=== PATIENT | female | born 1975 | race Caucasian/White ===

== ENCOUNTER 2016-09-06 14:00 | Observation (INO) | payer SELFPAY ==
[~2016-09-06] VITALS: Ht 167.6 cm; Wt 84.2 kg
[2016-09-06] VITALS (12 sets, daily range): BP systolic 152–169; BP diastolic 86–100; PULSE 63–93; RESP 16–22; TEMP 97.6–98.2; O2SAT 96–100
[2016-09-06] MEDS ORDERED: NITROGLYCERIN 0.4 MG SL 25 TABS/BTL SL ONE (15:00)
[2016-09-06] MEDS ORDERED: ASPIRIN 81 MG CHEW TAB PO ONE (15:00)
[2016-09-06] MEDS ORDERED: SODIUM CHLORIDE 0.9% FLUSH 10 ML FLUSH IVF PRN (15:00)
[2016-09-06 15:10] LABS: AUTOMATED NEUTROPHIL # 8.4 TH/MM3 (1.8-7.7); BASOPHIL # 0.1 TH/MM3 (0-0.2); BASOPHIL % 0.5 % (0.0-2.0); EOSINOPHIL # 0.1 TH/MM3 (0-0.4); EOSINOPHIL % 1.2 % (0.0-4.0); HEMATOCRIT 35.1 % (35.0-46.0); HEMO FLAGS DIFF FINAL; LYMPH % 22.6 % (9.0-44.0); LYMPHOCYTE # 2.7 TH/MM3 (1.0-4.8); MEAN CELL VOLUME 83.7 FL (80.0-100.0); MEAN CORPUSCULAR HEMOGLOBIN 29.7 PG (27.0-34.0); MEAN CORPUSCULAR HGB CONC 35.5 % (32.0-36.0); MONO % 4.1 % (0.0-8.0); NEUT % 71.6 % (16.0-70.0); PLATELET COUNT 301 TH/MM3 (150-450); RED BLOOD COUNT 4.19 MIL/MM3 (4.00-5.30); RED CELL DISTRIBUTION WIDTH 12.1 % (11.6-17.2); WHITE BLOOD COUNT 11.8 TH/MM3 (4.0-11.0)
[2016-09-06 15:22] LABS: CHLORIDE 108 MEQ/L (98-107); POTASSIUM 3.3 MEQ/L (3.5-5.1); SODIUM (NA) 143 MEQ/L (136-145)
[2016-09-06 15:26] LABS: ANION GAP 11 MEQ/L (5-15); BICARBONATE 24.2 MEQ/L (21.0-32.0); BLOOD UREA NITROGEN 16 MG/DL (7-18); MAGNESIUM 2.2 MG/DL (1.5-2.5)
[2016-09-06 15:29] LABS: ALT (GPT) 121 U/L (10-53); AST (GOT) 60 U/L (15-37); GLOMERULAR FILTRATION RATE 80 ML/MIN (>89)
[2016-09-06 15:30] LABS: TOTAL BILIRUBIN ADULT 0.2 MG/DL (0.2-1.0)
[2016-09-06 15:32] LABS: ALKALINE PHOSPHATASE 59 U/L (45-117); CREATINE KINASE 641 U/L (26-192)
[2016-09-06 15:38] LABS: APTT (PATIENT) 28.2 SEC (24.3-30.1); INTERNATIONAL NORMALIZED RATIO 0.9 RATIO; PROTHROMBIN TIME - PATIENT 9.8 SEC (9.8-11.6)
--- NOTE | 2016-09-06 15:42 | PD ---
HPI Chief Complaint: Respiratory Symptoms Time Seen by Provider: 14:41 Travel History International Travel<30 days: No Contact w/Intl Traveler<30days: No Traveled to known affect area: No History of Present Illness HPI Patient is a 41-year-old female comes in complaining of chest pain. She says she has had the pain for the past 3 days, but it got worse today. She says the pain was intermittent until today. She says the pain radiates down her left arm and up her jaw. She has not had any nausea or vomiting. She denies cough or cold. She does feel some shortness of breath. She describes the pain as a pressure in her chest. She denies fever or chills. She had a hysterectomy a few years ago. She denies any drug use. She is a smoker. [facility]LY [facility] Past Medical History Tetanus Vaccination: < 5 Years Influenza Vaccination: No ?: Not Past Surgical History Hysterectomy: Yes Family History Family Myocardial Infarction: Yes (father and grandfather) Social History Alcohol Use: Yes (socially, beer, wine or mix drinks) Tobacco Use: Yes (1/2 ppd) Substance Use: Yes (states smoked "pot") Allergies-Medications (Allergen,Severity, Reaction): Coded Allergies: Sulfa (Verified Allergy, Severe, hives, 09/06/16) Uncoded Allergies: anesthesia (Adverse Reaction, Unknown, Nausea/Vomiting, 09/06/16) Review of Systems Except as stated in HPI: all other systems reviewed are Neg General / Constitutional: No: Fever, Chills HENT: No: Headaches, Vertigo, Lightheadedness Cardiovascular: Positive: Chest Pain or Discomfort Respiratory: Positive: Shortness of Breath, No: Cough Gastrointestinal: No: Nausea, Vomiting Musculoskeletal: No: Myalgias Skin: No Rash Neurologic: No: Weakness, Dizziness Physical Exam Narrative GENERAL: Awake and alert, in no acute distress. SKIN: Focused skin assessment warm/dry. HEAD: Atraumatic. Normocephalic. EYES: Pupils equal and round. No scleral icterus. ENT: Mucous membranes pink and moist. NECK: Trachea midline. No JVD. CARDIOVASCULAR: Regular rate and rhythm. No murmur appreciated. No chest wall tenderness. RESPIRATORY: No accessory muscle use. Clear to auscultation. Breath sounds equal bilaterally. GASTROINTESTINAL: Abdomen soft, non-tender, nondistended. MUSCULOSKELETAL: No obvious deformities. No clubbing. No cyanosis. No edema. NEUROLOGICAL: Awake and alert. No obvious cranial nerve deficits. Motor grossly within normal limits. Normal speech. PSYCHIATRIC: Appropriate mood and affect; insight and judgment normal. Data Data Last Documented VS Vital Signs Date Time Temp Pulse Resp B/P Pulse Ox O2 Delivery O2 Flow Rate FiO2 09/06/16 15:48 16 09/06/16 15:35 80 166/90 09/06/16 15:00 99 Room Air 09/06/16 14:48 98.1 Orders Ckmb (Isoenzyme) Profile (09/06/16 14:52) Complete Blood Count With Diff (09/06/16 14:52) Comprehensive Metabolic Panel (09/06/16 14:52) D-Dimer (09/06/16 14:52) Magnesium (Mg) (09/06/16 14:52) Prothrombin Time / Inr (Pt) (09/06/16 14:52) Act Partial Throm Time (Ptt) (09/06/16 14:52) Troponin I (09/06/16 14:52) Ecg Monitoring (09/06/16 14:52) Bilateral Bp Monitoring (09/06/16 14:52) Iv Access Insert/Monitor (09/06/16 14:52) Oximetry (09/06/16 14:52) Oxygen Administration (09/06/16 14:52) Aspirin Chew (Aspirin Chew) (09/06/16 15:00) Sodium Chloride 0.9% Flush (Ns Flush) (09/06/16 15:00) Nitroglycerin Sl (Nitrostat Sl) (09/06/16 15:00) Chest, Pa & Lat (09/06/16 14:52) Electrocardiogram (09/06/16 14:21) CKMB (09/06/16 15:05) CKMB% (09/06/16 15:05) Labs Laboratory Tests Test 09/06/16 15:05 White Blood Count 11.8 TH/MM3 Red Blood Count 4.19 MIL/MM3 Hemoglobin 12.4 GM/DL Hematocrit 35.1 % Mean Corpuscular Volume 83.7 FL Mean Corpuscular Hemoglobin 29.7 PG Mean Corpuscular Hemoglobin 35.5 % Concent Red Cell Distribution Width 12.1 % Platelet Count 301 TH/MM3 Mean Platelet Volume 7.1 FL Neutrophils (%) (Auto) 71.6 % Lymphocytes (%) (Auto) 22.6 % Monocytes (%) (Auto) 4.1 % Eosinophils (%) (Auto) 1.2 % Basophils (%) (Auto) 0.5 % Neutrophils # (Auto) 8.4 TH/MM3 Lymphocytes # (Auto) 2.7 TH/MM3 Monocytes # (Auto) 0.5 TH/MM3 Eosinophils # (Auto) 0.1 TH/MM3 Basophils # (Auto) 0.1 TH/MM3 CBC Comment DIFF FINAL Differential Comment Prothrombin Time 9.8 SEC Prothromb Time International 0.9 RATIO Ratio Activated Partial 28.2 SEC Thromboplast Time D-Dimer Quantitative (PE/DVT) 0.43 MG/L FEU Sodium Level 143 MEQ/L Potassium Level 3.3 MEQ/L Chloride Level 108 MEQ/L Carbon Dioxide Level 24.2 MEQ/L Anion Gap 11 MEQ/L Blood Urea Nitrogen 16 MG/DL Creatinine 0.79 MG/DL Estimat Glomerular Filtration 80 ML/MIN Rate Random Glucose 90 MG/DL Calcium Level 8.9 MG/DL Magnesium Level 2.2 MG/DL Total Bilirubin 0.2 MG/DL Aspartate Amino Transf 60 U/L (AST/SGOT) Alanine Aminotransferase 121 U/L (ALT/SGPT) Alkaline Phosphatase 59 U/L Total Creatine Kinase 641 U/L Creatine Kinase MB 3.4 NG/ML Creatine Kinase MB % 0.5 % Troponin I LESS THAN 0.02 NG/ML Total Protein 7.6 GM/DL Albumin 4.2 GM/DL MDM Medical Decision Making Medical Screen Exam Complete: Yes Emergency Medical Condition: Yes Interpretation(s) ECG shows normal sinus rhythm at 76, no ST elevation or depression, normal intervals. Differential Diagnosis Costochondritis versus pericarditis versus pneumothorax versus pneumonia versus ACS Narrative Course Patient is a 41-year-old female comes in complaining of chest pain. Exam shows no acute abnormalities. IV established, labs sent. Patient connected to monitoring analyst. First troponin is negative. Patient given aspirin and nitroglycerin. She feels better after nitroglycerin. Labs show no acute abnormalities. Patient has had a hysterectomy, thus does not have the protection of estrogen anymore. I believe it is in her best interest to be placed in chest pain center for further management. Diagnosis Primary Impression: Chest pain Qualified Code: R07.9 - Chest pain, unspecified type Admitting Information Admitting Physician Requests: Observation Shelia Martinez MD Sep 06, 2016 15:42
[2016-09-06 15:44] LABS: CKMB 3.4 NG/ML (0.5-3.6)
--- NOTE | 2016-09-06 16:29 | HHI.HP ---
HPI Primary Care Physician No Primary Care Physician Admission Diagnosis Chest Pain Diagnoses: Chief Complaint: Chest pain and short of breath History of Present Illness Patient is a 41-year-old female with 3 days of increasing left sided chest discomfort described as pressure. It is severe and increasing as the last 3 days have gone by. Is now associated with shortness of breath for 1 day. She has some associated nausea. The pain did radiate into her jaw and has been worse with movement. Patient notes no previous episodes, no recent trauma and no relieving factors other than nitroglycerin given in the emergency room. She does smoke half pack per day and admits to significant family history of premature cardiac disease. She does exercise daily and lives an active lifestyle. She has never had chest pain despite doing 30 minutes of cardio and other activities in her local gym. Patient did have negative cardiac enzymes however her CPK was somewhat elevated and she was at the gym yesterday. For these reasons the patient was recommended for and agrees to observation in the chest pain unit. Review of Systems Constitutional: DENIES: Diaphoretic episodes, Fatigue, Fever, Weight gain, Weight loss, Chills, Dizziness, Change in appetite, Night Sweats Eyes: DENIES: Blurred vision, Diplopia, Eye inflammation, Eye pain, Vision loss , Photosensitivity, Double Vision Ears, nose, mouth, throat: DENIES: Tinnitus, Hearing loss, Vertigo, Nasal discharge, Oral lesions, Throat pain, Hoarseness, Ear Pain, Running Nose, Epistaxis, Sinus Pain, Toothache, Odynophagia Respiratory: COMPLAINS OF: Shortness of breath, DENIES: Apneas, Cough, Snoring , Wheezing, Hemoptysis, Sputum production Cardiovascular: COMPLAINS OF: Chest pain Gastrointestinal: DENIES: Abdominal pain, Black stools, Bloody stools, Constipation, Diarrhea, Nausea, Vomiting, Difficulty Swallowing, Anorexia Genitourinary: DENIES: Abnormal vaginal bleeding, Dysmenorrhea, Dyspareunia, Sexual dysfunction, Urinary frequency, Urinary incontinence, Urgency, Hematuria , Dysuria, Nocturia, Vaginal discharge Musculoskeletal: DENIES: Joint pain, Muscle aches, Stiffness, Joint Swelling, Back pain, Neck pain Integumentary: DENIES: Abnormal pigmentation, Pruritus, Rash, Nail changes, Breast masses, Breast skin changes, Nipple discharge Hematologic/lymphatic: DENIES: Bruising, Lymphadenopathy Immunologic/allergic: DENIES: Eczema, Urticaria Neurologic: DENIES: Abnormal gait, Headache, Localized weakness, Paresthesias, Seizures, Speech Problems, Tremor, Poor Balance Psychiatric: DENIES: Anxiety, Confusion, Mood changes, Depression, Hallucinations, Agitation, Suicidal Ideation, Homicidal Ideation, Delusions Past Family Social History Past Medical History Denies Past Surgical History Denies Reported Medications Denies Allergies: Coded Allergies: Sulfa (Verified Allergy, Severe, hives, 09/06/16) Uncoded Allergies: anesthesia (Adverse Reaction, Unknown, Nausea/Vomiting, 09/06/16) Active Ordered Medications Reviewed in the medical record Family History Grandmother in her 50s from a massive heart attack and had congestive heart failure, grandfather at 58 from massive heart attack and had congestive heart failure, father had a cardiac bypass at age 55 and at age 60 from massive heart attack Social History 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 SKIN: No rashes, ecchymoses or lesions. Cool and dry. HEAD: Atraumatic. Normocephalic. No temporal or scalp tenderness. EYES: Pupils equal round and reactive. Extraocular motions intact. No scleral icterus. No injection or drainage. ENT: Nose without bleeding, purulent drainage or septal hematoma. Throat without erythema, tonsillar hypertrophy or exudate. Uvula midline. Airway patent. NECK: Trachea midline. No JVD or lymphadenopathy. Supple, nontender, no meningeal signs. CARDIOVASCULAR: Regular rate and rhythm without murmurs, gallops, or rubs. RESPIRATORY: Clear to auscultation. Breath sounds equal bilaterally. No wheezes , rales, or rhonchi. GASTROINTESTINAL: Abdomen soft, non-tender, nondistended. No hepato-splenomegaly , or palpable masses. No guarding. MUSCULOSKELETAL: Reproducible left axillary tenderness and reproducible discomfort with range of motion of the left upper extremity. Extremities without clubbing, cyanosis, or edema. No joint tenderness, effusion, or edema noted. No calf tenderness. Negative Homans sign bilaterally. NEUROLOGICAL: Awake and alert. Cranial nerves II through XII intact. Motor and sensory grossly within normal limits. Five out of 5 muscle strength in all muscle groups. Normal speech. Laboratory Laboratory Tests Test 09/06/16 15:05 White Blood Count 11.8 Red Blood Count 4.19 Hemoglobin 12.4 Hematocrit 35.1 Mean Corpuscular Volume 83.7 Mean Corpuscular Hemoglobin 29.7 Mean Corpuscular Hemoglobin 35.5 Concent Red Cell Distribution Width 12.1 Platelet Count 301 Mean Platelet Volume 7.1 Neutrophils (%) (Auto) 71.6 Lymphocytes (%) (Auto) 22.6 Monocytes (%) (Auto) 4.1 Eosinophils (%) (Auto) 1.2 Basophils (%) (Auto) 0.5 Neutrophils # (Auto) 8.4 Lymphocytes # (Auto) 2.7 Monocytes # (Auto) 0.5 Eosinophils # (Auto) 0.1 Basophils # (Auto) 0.1 CBC Comment DIFF FINAL Differential Comment Prothrombin Time 9.8 Prothromb Time International 0.9 Ratio Activated Partial 28.2 Thromboplast Time D-Dimer Quantitative (PE/DVT) 0.43 Sodium Level 143 Potassium Level 3.3 Chloride Level 108 Carbon Dioxide Level 24.2 Anion Gap 11 Blood Urea Nitrogen 16 Creatinine 0.79 Estimat Glomerular Filtration 80 Rate Random Glucose 90 Calcium Level 8.9 Magnesium Level 2.2 Total Bilirubin 0.2 Aspartate Amino Transf 60 (AST/SGOT) Alanine Aminotransferase 121 (ALT/SGPT) Alkaline Phosphatase 59 Total Creatine Kinase 641 Creatine Kinase MB 3.4 Creatine Kinase MB % 0.5 Troponin I LESS THAN 0.02 Total Protein 7.6 Albumin 4.2 Result Diagram: 09/06/16 1505 09/06/16 1505 Imaging On my review no acute cardiopulmonary findings Assessment and Plan Problem List: (1) Chest pain ICD Code: R07.9 Status: Acute Plan: atypical chest pain, likely musculoskeletal Follow CPK, treadmill in am + tobacco, Fhx of premature Heart disease, postmenopausal (2) Hypokalemia ICD Code: E87.6 Status: Acute Plan: replace and follow trend (3) Rhabdomyolysis ICD Code: M62.82 Status: Acute Plan: Trend cpk, tylenol prn IVF Problem Qualifiers (1) Chest pain: Qualified Code: R07.9 - Chest pain, unspecified type Celia Moreau MD Sep 06, 2016 16:29
[2016-09-06] MEDS ORDERED: ACETAMINOPHEN 500 MG CPLT PO PRN (16:30)
[2016-09-06] MEDS ORDERED: NITROGLYCERIN 0.4 MG SL 25 TABS/BTL SL PRN (16:30)
[2016-09-06] MEDS ORDERED: ONDANSETRON HCL 4 MG/2 ML VIAL IV PRN (16:30)
[2016-09-06] MEDS: SODIUM CHLOR 0.9% 1000 ML INJ 1,000 ML IV SCH (17:03)
--- NOTE | 2016-09-06 17:11 | RADHPO ---
EXAM DATE/TIME: 09/06/2016 15:50 [facility] COMPARISON: No previous studies available for comparison. INDICATIONS : Patient has had chest pain for three days. MEDICAL HISTORY : None. SURGICAL HISTORY : Hysterectomy. ENCOUNTER: Initial ACUITY: 3 days PAIN SCORE: 5/10 LOCATION: Left chest FINDINGS: PA and lateral views of the chest demonstrate the lungs to be symmetrically aerated without evidence of mass, infiltrate or effusion. The cardiomediastinal contours are unremarkable. Osseous structure s are intact. CONCLUSION: 1. No acute cardiopulmonary disease radiographically. Ibrahima Hurley MD on September 06, 2016 at 16:50 Board Certified Radiologist. This report was verified electronically.
[2016-09-06 17:18] LABS: CREATINE KINASE 702 U/L (26-192)
[2016-09-06 20:04] LABS: CREATINE KINASE 730 U/L (26-192)
[2016-09-06 20:17] LABS: CKMB 3.5 NG/ML (0.5-3.6)
[2016-09-07] VITALS (8 sets, daily range): BP systolic 120–159; BP diastolic 71–90; PULSE 62–80; RESP 16–18; TEMP 97.2–98.9; O2SAT 96–98
[2016-09-07] MEDS: SODIUM CHLOR 0.9% 1000 ML INJ 1,000 ML IV SCH ×3 (04:27→21:18)
[2016-09-07 06:37] LABS: CKMB 2.8 NG/ML (0.5-3.6)
[2016-09-07 07:36] LABS: POTASSIUM 4.1 MEQ/L (3.5-5.1)
[2016-09-07 07:39] LABS: BICARBONATE 24.3 MEQ/L (21.0-32.0)
--- NOTE | 2016-09-07 08:08 | HHI.PR ---
Subjective Remarks Follow-up for chest pain. Patient denies any further chest pain overnight. Denies any shortness of breath. She does admit to feeling weak and achy in her arms and legs this morning. Denies any hematuria. Admits to good urine output. Denies fevers or vomiting. Objective Vitals Vital Signs Date Time Temp Pulse Resp B/P Pulse Ox O2 Delivery O2 Flow Rate FiO2 09/07/16 04:00 98.1 67 18 134/88 96 09/07/16 00:00 98.1 67 18 120/76 96 09/06/16 21:30 97 21 09/06/16 21:00 78 09/06/16 19:11 97.6 68 18 169/99 97 09/06/16 18:19 63 09/06/16 17:46 97.8 71 20 155/94 96 09/06/16 17:34 80 16 152/94 100 09/06/16 16:28 76 16 161/89 100 Room Air 09/06/16 16:23 78 16 100 Room Air 09/06/16 15:48 16 09/06/16 15:35 80 16 166/90 09/06/16 15:00 82 16 163/97 99 Room Air 09/06/16 14:48 98.1 84 16 155/86 98 Room Air 09/06/16 14:30 16 99 Room Air 09/06/16 14:30 99 Room Air 09/06/16 14:29 97 16 96 Room Air 09/06/16 14:04 98.2 93 22 155/100 96 I/O 09/06/16 09/06/16 09/06/16 09/07/16 09/07/16 09/07/16 07:00 15:00 23:00 07:00 15:00 23:00 Intake Total 1000 ml Balance 1000 ml Intake IV Total 1000 ml # Voids 2 2 Result Diagram: 09/06/16 1505 09/07/16 0545 Objective Remarks GENERAL: Pleasant well-nourished, well-developed patient in no apparent distress. SKIN: Warm and dry. HEAD: Atraumatic. Normocephalic. CHEST: Reproducible tenderness over the left anterior chest wall. CARDIOVASCULAR: Regular rate and rhythm. No murmurs. RESPIRATORY: No accessory muscle use. Clear to auscultation. Breath sounds equal bilaterally. GASTROINTESTINAL: Abdomen soft, non-tender, nondistended. MUSCULOSKELETAL: No tenderness to palpation over the upper arms or calves bilaterally. No lower extremity edema bilaterally. NEUROLOGICAL: Awake and alert. Five out of 5 customer relations representative strength bilaterally and 5/5 strength in bilateral quadriceps. Normal speech. PSYCHIATRIC: Appropriate mood and affect; insight and judgment normal. Urinary Catheter: No Vascular Central Line Catheter: No A/P Problem List: (1) Chest pain ICD Code: R07.9 Status: Acute (2) Rhabdomyolysis ICD Code: M62.82 Status: Acute (3) Hypokalemia ICD Code: E87.6 Status: Resolved Assessment and Plan Chest pain: Atypical chest pain, appears musculoskeletal, but patient has + tobacco use and family history of premature heart disease. -EKGs 3 personally interpreted with sinus rhythm and no evidence of ischemia. -Troponin 3 less than 0.02. -Chest x-ray personally reviewed with no acute disease evident. -325 mg daily aspirin -Nitro prn chest pain -It is unsafe to perform treadmill this morning as patient's rhabdomyolysis is worsening and she is symptomatic now feeling achy and weak. She declines nuclear stress test as she does not desire medication. Rhabdomyolysis: Mild, but worse even after starting IV fluids. CPK trending upward 641-->750. Attributed to over exertion. 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 She does admit to hydrating. -BMP reviewed this morning with normal renal function. -Continue IV normal saline, but increase rate from 84 to 100 mL/hour Hypokalemia: Resolved. 3.3-->4.1. Mg normal. -Monitor DVT prophylaxis: Avoid SCDs due to leg aches. Consider starting Lovenox if patient does not ambulate sufficiently. Addendum Remarks The exam, history, and the medical decision-making described in the above note were completed with my assistance as the dictating practitioner. I attest that I had a [id number] encounter with the patient on the same day, and personally performed all of the history, exam, or medical decision making. I reviewed and agree with the plan. Patient seen and evaluated in follow-up for likely musculoskeletal chest pain and rhabdo my lysis Continue with IV hydration, patient will need outpatient follow-up We'll follow-up CPK Questions answered Likely discharge in a.m. Problem Qualifiers (1) Chest pain: Qualified Code: R07.9 - Chest pain, unspecified type Mansi Kapadia Sep 07, 2016 08:08 Celia Moreau MD Sep 07, 2016 12:15
[2016-09-07] MEDS: ASPIRIN 325 MG TAB PO SCH (09:00)
[2016-09-07] MEDS ORDERED: SODIUM CHLOR 0.9% 1000 ML INJ 1,000 ML IV ONE ×2 (12:00)
--- NOTE | 2016-09-07 22:40 | EKG ---
Date Performed: 09/06/2016 Time Performed: 19:20:30 PTAGE: 41 years EKG: Sinus rhythm WITH SINUS ARRHYTHMIA NORMAL ECG PREVIOUS TRACING : 09/06/2016 16.56 DOCTOR: Major Sultana Interpretating Date/Time 09/07/2016 22:38:35
--- NOTE | 2016-09-07 22:44 | EKG ---
Date Performed: 09/06/2016 Time Performed: 16:56:15 PTAGE: 41 years EKG: Sinus rhythm NORMAL ECG PREVIOUS TRACING : 09/06/2016 16.50 DOCTOR: Major Sultana Interpretating Date/Time 09/10/2016 07:08:49
--- NOTE | 2016-09-07 22:50 | EKG ---
Date Performed: 09/06/2016 Time Performed: 14:21:26 PTAGE: 41 years EKG: Sinus rhythm NORMAL ECG INTERPRETATION BASED ON A DEFAULT AGE OF 40 YEARS NO PREVIOUS TRACING DOCTOR: Major Sultana Interpretating Date/Time 09/07/2016 22:47:19
[2016-09-08 03:10] VITALS: BP 120/81; PULSE 59; RESP 18; TEMP 98; O2SAT 97
[2016-09-08 08:00] VITALS: BP 145/93; PULSE 65; RESP 20; TEMP 97.3; O2SAT 98
[2016-09-08 08:15] LABS: CKMB 1.4 NG/ML (0.5-3.6)
[2016-09-08] MEDS: ASPIRIN 325 MG TAB PO SCH (09:38)
--- NOTE | 2016-09-08 10:05 | HHI.DCPOC ---
Discharge Care Plan Diagnosis: (1) Rhabdomyolysis (2) Chest pain (3) Hypokalemia Goals to Promote Your Health * To prevent worsening of your condition and complications * To maintain your health at the optimal level Directions to Meet Your Goals Take your medications as prescribed Follow your dietary instruction Follow activity as directed Keep your appointments as scheduled Take your immunizations and boosters as scheduled If your symptoms worsen call your PCP, if no PCP go to Urgent Care Center or Emergency Room Smoking is Dangerous to Your Health. Avoid second hand smoke Call the 24-hour hour crisis hotline for domestic abuse at eClia Moreau MD Sep 08, 2016 10:05
--- NOTE | 2016-09-08 10:08 | HHI.DS ---
Discharge Summary Admission Date Sep 06, 2016 at 16:08 Discharge Date: Sep 08, 2016 Admitting Diagnosis Chest Pain (1) Chest pain ICD Code: R07.9 (2) Rhabdomyolysis ICD Code: M62.82 (3) Hypokalemia ICD Code: E87.6 Procedures none Brief History - From Admission Patient is a 41-year-old female with 3 days of increasing left sided chest discomfort described as pressure. It is severe and increasing as the last 3 days have gone by. Is now associated with shortness of breath for 1 day. She has some associated nausea. The pain did radiate into her jaw and has been worse with movement. Patient notes no previous episodes, no recent trauma and no relieving factors other than nitroglycerin given in the emergency room. She does smoke half pack per day and admits to significant family history of premature cardiac disease. She does exercise daily and lives an active lifestyle. She has never had chest pain despite doing 30 minutes of cardio and other activities in her local gym. Patient did have negative cardiac enzymes however her CPK was somewhat elevated and she was at the gym yesterday. For these reasons the patient was recommended for and agrees to observation in the chest pain unit. CBC/BMP: 09/06/16 1505 09/07/16 0545 Significant Findings Laboratory Tests Test 09/06/16 09/06/16 09/06/16 09/07/16 15:05 16:40 19:25 05:45 White Blood Count 11.8 TH/MM3 (4.0-11.0) Neutrophils (%) (Auto) 71.6 % (16.0-70.0) Neutrophils # (Auto) 8.4 TH/MM3 (1.8-7.7) Potassium Level 3.3 MEQ/L (3.5-5.1) Chloride Level 108 MEQ/L 110 MEQ/L (98-107) (98-107) Estimat Glomerular Filtration 80 ML/MIN (>89) Rate Aspartate Amino Transf 60 U/L (15-37) (AST/SGOT) Alanine Aminotransferase 121 U/L (10-53) (ALT/SGPT) Total Creatine Kinase 641 U/L 702 U/L 730 U/L 750 U/L (26-192) (26-192) (26-192) (26-192) Troponin I LESS THAN 0.02 LESS THAN 0.02 LESS THAN 0.02 NG/ML NG/ML NG/ML (0.02-0.05) (0.02-0.05) (0.02-0.05) Calcium Level 8.2 MG/DL (8.5-10.1) Test 09/08/16 06:32 Total Creatine Kinase 554 U/L (26-192) Imaging Last Impressions Chest X-Ray 09/06/16 1452 Signed Impressions: Service Date/Time: , September 06, 2016 15:50 - CONCLUSION: 1. No acute cardiopulmonary disease radiographically. Ibrahima Hurley MD PE at Discharge GENERAL: Pleasant well-nourished, well-developed patient in no apparent distress. SKIN: Warm and dry. HEAD: Atraumatic. Normocephalic. CHEST: Reproducible tenderness over the left anterior chest wall. CARDIOVASCULAR: Regular rate and rhythm. No murmurs. RESPIRATORY: No accessory muscle use. Clear to auscultation. Breath sounds equal bilaterally. GASTROINTESTINAL: Abdomen soft, non-tender, nondistended. MUSCULOSKELETAL: No tenderness to palpation over the upper arms or calves bilaterally. No lower extremity edema bilaterally. NEUROLOGICAL: Awake and alert. Five out of 5 shop cooper strength bilaterally and 5/5 strength in bilateral quadriceps. Normal speech. PSYCHIATRIC: Appropriate mood and affect; insight and judgment normal. Pt update on day of discharge patient seen in follow up for Musculoskeletal CP and Rhabdomyolysis. Resolved after IV fluids. Pain is resolved also. Discharge plan discussed with patient Hospital Course Patient's [id number] female with recurrent hospital with left-sided chest discomfort and pain. Pain appeared reproducible however the patient had multiple risk factors for atypical chest discomfort. She was recommended for cardiac stress test however she appeared to be in rhabdomyolysis and refused any further stress testing. The patient was treated medically for rhabdomyolysis and hypokalemia and her pain resolved spontaneously. She was advised to increase her hydration and to decrease strenuous activity for a few days. She is recommended Tylenol [id number] as needed for discomfort. Pt Condition on Discharge: Good Discharge Disposition: Discharge Home Discharge Time: > 30 minutes Discharge Instructions DIET: Follow Instructions for: As Tolerated, No Restrictions Activities you can perform: Regular-No Restrictions Celia Moreau MD Sep 08, 2016 10:08
== END 2016-09-08 11:30 | disposition home or self-care (01) ==
LOC: PHED 14:00 → PHEDA 16:08 → PH3B 17:31
PROVIDERS: ADMIT Hospitalist; ATTEND Hospitalist
DX: R07.89 Other chest pain (principal); E87.6 Hypokalemia; M62.82 Rhabdomyolysis; R06.02 Shortness of breath; R11.0 Nausea; I49.8 Other specified cardiac arrhythmias; M79.601 Pain in right arm; M79.602 Pain in left arm; M79.604 Pain in right leg; M79.605 Pain in left leg; F17.200 Nicotine dependence, unspecified, uncomplicated; Z82.49 Family history of ischemic heart disease and other diseases of the circulatory system
CPT/HCPCS: 71020; 80048; 80053; 82550; 82552; 83735; 84484; 85025; 85379; 85610; 85730; 93005; 96360; 96361; 99285; G0378; J7030